=== PATIENT | female | born 1950 | race Caucasian/White ===

== ENCOUNTER 2021-02-28 12:26 | Outpatient (CLI) | payer MEDICARE ==
[~2021-02-28 12:26] MED LIST: ALPR1TAB2 PO
[2021-02-28] MEDS ORDERED: GADOTERATE 10 MMOL/20 ML VIAL ONE (14:05)
== END 2021-02-28 23:59 | disposition home or self-care (01) ==
LOC: CFH 12:26
PROVIDERS: ATTEND Family Medicine
DX: Z15.01 Genetic susceptibility to malignant neoplasm of breast (principal)
CPT/HCPCS: 77049; A9575; C8937; C8908